=== PATIENT | male | born 1985 | race Asian ===

== ENCOUNTER 2020-10-31 10:25 | Inpatient (IN) | payer BC ==
[~2020-10-31] VITALS: Ht 177.8 cm; Wt 117.6 kg
--- NOTE | 2020-10-31 11:01 | NUR ---
PT BIB SELF VIA POV. PER PT HE HASN'T CHECKED HIS TEMPERATURE BUT FEELS LIKE HE HAS HAD FEVER SINCE LAST NIGHT. PT ALSO STATES HE HAS HAD A [place] AND COUGH X1DAY. PT STATES HE IS VACCINATED FOR COVID19. PT RESTING IN [place] AT THIS TIME, TM.
[2020-10-31] MEDS ORDERED: KETOROLAC 30 MG/1 ML ONE (11:26)
[2020-10-31] MEDS ORDERED: KETOROLAC 30 MG/1 ML IVPush ONE (12:00)
[2020-10-31] MEDS ORDERED: SODIUM CHLORIDE 0.9% 1,000ML IVBOLUS ONE (12:00)
[2020-10-31 12:08] LABS: BASOPHILS % (AUTO) 1 % (0-1); EOSINOPHILS % (AUTO) 4 % (1-7); LYMPHOCYTES % (AUTO) 12 % (22-44); MEAN CORPUSCULAR HEMOGLOBIN 30.4 pg (27.5-34.5); MEAN CORPUSCULAR HGB CONC 34.8 g/dL (33.2-36.2); MEAN PLATELET VOLUME 7.3 fL (7.4-10.4); MONOCYTES % (AUTO) 10 % (2-9); NEUTROPHILS % (AUTO) 74 % (42-75); PLATELET COUNT 223 x10^3/uL (130-400); RED BLOOD COUNT 4.24 x10^6/uL (4.38-5.82); RED CELL DISTRIBUTION WIDTH 14.3 % (9.4-14.8)
[2020-10-31 12:19] LABS: ALANINE AMINOTRANSFERASE 22 U/L (12-78); ALBUMIN 3.5 g/dL (3.4-5.0); ANION GAP 12 mmol/L (5-15); CALCIUM 8.5 mg/dL (8.5-10.1); CHLORIDE 105 mmol/L (98-107); CREATININE 7.47 mg/dL (0.7-1.3)
[2020-10-31 12:22] LABS: ALKALINE PHOSPHATASE 75 U/L (45-117); BILIRUBIN,TOTAL 1.4 mg/dL (0.2-1.0); TOTAL PROTEIN 8.9 g/dL (6.4-8.2)
[2020-10-31] MEDS ORDERED: SODIUM CHLORIDE FLUSH 10ML SYR IVF ONE (12:30)
--- NOTE | 2020-10-31 13:26 | NUR ---
Denise schaefer in [facility] - 10/31/20 at 1326 by DARRIUS REPORT FROM JAYESH CHUNG
--- NOTE | 2020-10-31 13:27 | NUR ---
REPORT FROM JAYESH ELLIOTT.
--- NOTE | 2020-10-31 13:35 | NUR ---
UNHOOKED TO GO TO BATHROOM GIVEN UA CUP COVID SWAB TO LAB.
--- NOTE | 2020-10-31 14:03 | NUR ---
MO DODGE AT BEDSIDE.
[2020-10-31 14:23] LABS: MICROSCOPIC AUTO
--- NOTE | 2020-10-31 14:25 | NUR ---
SPOKE Jeffery HASSAN RE: HIGH BP. STS DOES NOT WANT TO LOWER PTS BP TOO QUICKLY AND WILL AWAIT HOSPITALIST EVAL OF PT. PT DENIES PAIN, STS HE FEELS FINE, CALL KEARNEY IN REACH.
[2020-10-31] MEDS ORDERED: ONDANSETRON 2MG/ML, 2ML IVPush PRN (14:30)
[2020-10-31] MEDS ORDERED: hydrALAzine 20 MG/ML, 1ML IVPush PRN (14:30)
[2020-10-31] MEDS ORDERED: BISACODYL 10 MG SUPP PR PRN (14:30)
[2020-10-31] MEDS ORDERED: TRAZODONE 50MG TABLET PO PRN (14:30)
[2020-10-31] MEDS ORDERED: MELATONIN 5 MG TABLET PO PRN (14:30)
[2020-10-31] MEDS ORDERED: HEPARIN 5,000 UNITS/ML, 1ML ONE (14:31)
[2020-10-31] MEDS: HEPARIN 5,000 UNITS/ML, 1ML SQ SCH ×2 (14:36→21:27)
[2020-10-31] MEDS: LABETALOL 5MG/ML, 20ML IVPush PRN ×2 (14:37→21:45)
[2020-10-31] MEDS ORDERED: OLMESARTAN PO (14:41)
[2020-10-31] MEDS ORDERED: SPIR25TA5 PO (14:41)
--- NOTE | 2020-10-31 14:43 | NUR ---
GAVE 10 MG IV LABETALOL W [place]NA [place], ORDERED DIET TRAY, MED REQ COMPLETE, NAD. CALL KEARNEY.
[2020-10-31 14:53] LABS: ABSOLUTE RETICS # 0.113 x10^6/uL (0.5-1.5); HCT (SEDRATE) 35.5 % (39.2-51.8); RED BLOOD COUNT 4.06 x10^6/uL (4.38-5.82); RETICULOCYTE COUNT % 2.79 % (0.5-1.5)
[2020-10-31 14:55] LABS: CHLORIDE,URINE RANDOM 77 mmol/L; POTASSIUM,URINE RANDOM 13 mmol/L; SODIUM,URINE RANDOM 82 mmol/L
--- NOTE | 2020-10-31 14:57 | NUR ---
REPORT TO JAYESH ELLIOTT.
[2020-10-31 14:58] LABS: CREATININE,URINE RANDOM 67.6 mg/dL
[2020-10-31 15:13] LABS: C-REACTIVE PROTEIN, QUANT 2.6 mg/dL (0.02-0.49)
--- NOTE | 2020-10-31 15:35 | NUR ---
PAIN IS 6/10 AT THIS TIME
--- NOTE | 2020-10-31 17:16 | NUR ---
PT EATING, VERBALIZED NO NEEDS AT THIS TIME
--- NOTE | 2020-10-31 17:58 | NUR ---
PT TO FLOOR VIA [facility] WITH BELONGINGS
[2020-10-31 18:01] VITALS: BP 149/97
[2020-10-31 19:00] VITALS: BP 149/97
[2020-10-31] MEDS: INSULIN LISPRO 100 UNITS/ML, PEN SQ-INSULIN SCH (21:00)
[2020-10-31] MEDS: ALBUTEROL HFA 90 MCG/SPRAY INH SCH (21:00)
[2020-10-31] MEDS: CEFTRIAXONE 2 GM in DEXTROSE 5% 50 ML IVPB SCH (21:25)
[2020-10-31] MEDS: GUAIFENESIN ER 600 MG TABLET PO SCH (21:26)
[2020-10-31] MEDS: DOXYCYCLINE 100MG TABLET PO SCH (21:26)
[2020-10-31 21:40] VITALS: BP 165/114
[2020-10-31 22:09] VITALS: BP 136/90
[2020-11-01 04:44] VITALS: BP_SYST 144; BP_SYST 147; BP_DIAS 107; BP_DIAS 109
[2020-11-01] MEDS: HEPARIN 5,000 UNITS/ML, 1ML SQ SCH ×3 (04:49→20:58)
[2020-11-01] MEDS: ALBUTEROL HFA 90 MCG/SPRAY INH SCH ×2 (06:00→11:00)
[2020-11-01 06:06] LABS: BASOPHILS % (AUTO) 0 % (0-1); EOSINOPHILS % (AUTO) 2 % (1-7); LYMPHOCYTES % (AUTO) 13 % (22-44); MEAN CORPUSCULAR HEMOGLOBIN 30.3 pg (27.5-34.5); MEAN CORPUSCULAR HGB CONC 34.5 g/dL (33.2-36.2); MEAN PLATELET VOLUME 7.1 fL (7.4-10.4); MONOCYTES % (AUTO) 6 % (2-9); NEUTROPHILS % (AUTO) 79 % (42-75); PLATELET COUNT 204 x10^3/uL (130-400); RED BLOOD COUNT 4.01 x10^6/uL (4.38-5.82); RED CELL DISTRIBUTION WIDTH 14.4 % (9.4-14.8)
[2020-11-01 06:21] LABS: ALBUMIN 2.9 g/dL (3.4-5.0); ANION GAP 9 mmol/L (5-15); CALCIUM 8.1 mg/dL (8.5-10.1); CHLORIDE 105 mmol/L (98-107)
[2020-11-01 06:24] LABS: ALANINE AMINOTRANSFERASE 25 U/L (12-78); ALKALINE PHOSPHATASE 65 U/L (45-117); BILIRUBIN,TOTAL 0.8 mg/dL (0.2-1.0); TOTAL PROTEIN 8.1 g/dL (6.4-8.2)
[2020-11-01] MEDS: INSULIN LISPRO 100 UNITS/ML, PEN SQ-INSULIN SCH ×4 (07:00→20:51)
[2020-11-01] MEDS: AMLODIPINE 10 MG TAB PO SCH (08:39)
[2020-11-01] MEDS: GUAIFENESIN ER 600 MG TABLET PO SCH ×2 (08:39→20:51)
[2020-11-01] MEDS: DOXYCYCLINE 100MG TABLET PO SCH ×2 (08:39→20:51)
[2020-11-01] MEDS: ALLOPURINOL 300 MG TABLET PO SCH (08:40)
[2020-11-01] MEDS: SENNA/DOCUSATE TABLET PO SCH (08:40)
[2020-11-01 09:58] VITALS: BP 130/86
[2020-11-01 12:15] VITALS: BP 148/105
[2020-11-01] MEDS ORDERED: ALBUTEROL HFA 90 MCG/SPRAY INH PRN (15:30)
[2020-11-01 16:08] VITALS: BP 131/88
[2020-11-01 20:39] VITALS: BP 145/99
[2020-11-01] MEDS: CEFTRIAXONE 2 GM in DEXTROSE 5% 50 ML IVPB SCH (20:51)
[2020-11-01] MEDS: BUDESONIDE 0.5 MG/2 ML INHA INH SCH (21:00)
[2020-11-02 02:01] VITALS: BP 133/93
[2020-11-02] MEDS: HEPARIN 5,000 UNITS/ML, 1ML SQ SCH ×4 (04:34→21:39)
[2020-11-02 06:06] LABS: BASOPHILS % (AUTO) 0 % (0-1); EOSINOPHILS % (AUTO) 1 % (1-7); LYMPHOCYTES % (AUTO) 18 % (22-44); MEAN CORPUSCULAR HEMOGLOBIN 30.3 pg (27.5-34.5); MEAN CORPUSCULAR HGB CONC 34.8 g/dL (33.2-36.2); MEAN PLATELET VOLUME 7.2 fL (7.4-10.4); MONOCYTES % (AUTO) 6 % (2-9); NEUTROPHILS % (AUTO) 75 % (42-75); PLATELET COUNT 227 x10^3/uL (130-400); RED BLOOD COUNT 4.11 x10^6/uL (4.38-5.82); RED CELL DISTRIBUTION WIDTH 14.5 % (9.4-14.8)
[2020-11-02 06:19] LABS: CHLORIDE 104 mmol/L (98-107)
[2020-11-02 06:23] LABS: ANION GAP 10 mmol/L (5-15); CALCIUM 8.1 mg/dL (8.5-10.1); CREATININE 7.68 mg/dL (0.7-1.3)
[2020-11-02] MEDS ORDERED: ALBUTEROL SULFATE 2.5 MG/3 ML NPPB PRN (06:30)
[2020-11-02] MEDS: INSULIN LISPRO 100 UNITS/ML, PEN SQ-INSULIN SCH ×4 (07:00→21:00)
[2020-11-02 07:13] VITALS: BP 153/95
[2020-11-02] MEDS: GUAIFENESIN ER 600 MG TABLET PO SCH ×2 (07:58→21:38)
[2020-11-02] MEDS: DOXYCYCLINE 100MG TABLET PO SCH ×2 (07:58→21:38)
[2020-11-02] MEDS: ALLOPURINOL 300 MG TABLET PO SCH (07:58)
[2020-11-02] MEDS: AMLODIPINE 10 MG TAB PO SCH (07:58)
[2020-11-02] MEDS: SENNA/DOCUSATE TABLET PO SCH (07:58)
[2020-11-02] MEDS: BUDESONIDE 0.5 MG/2 ML INHA INH SCH ×2 (08:27→21:00)
[2020-11-02] MEDS: ALBUTEROL SULFATE 2.5 MG/3 ML NPPB SCH ×2 (08:27→21:00)
[2020-11-02 09:25] VITALS: BP 137/92
[2020-11-02 09:45] LABS: INTERNATIONAL NORMALIZED RATIO 1.06 (0.93-1.1); PROTHROMBIN TIME 11.3 Seconds (9.6-11.5)
[2020-11-02] MEDS ORDERED: LIDOCAINE 1%, 10ML ONE ×2 (12:44→13:38)
[2020-11-02] MEDS ORDERED: NALOXONE 1 MG/ML, 2ML ONE (12:51)
[2020-11-02] MEDS ORDERED: FENTANYL PF 100 MCG/2ML ONE (12:51)
[2020-11-02] MEDS ORDERED: FLUMAZENIL 0.1 MG/1 ML, 5ML ONE (12:51)
[2020-11-02] MEDS ORDERED: MIDAZOLAM 1 MG/ML, 5ML ONE (12:52)
[2020-11-02] MEDS ORDERED: LIDOCAINE 1%, 20ML ONE (13:36)
[2020-11-02 14:59] VITALS: BP 151/110
[2020-11-02] MEDS: CALCIUM ACETATE 667 MG CAPSULE PO SCH ×2 (16:40→21:38)
[2020-11-02 20:41] VITALS: BP 142/103
[2020-11-02] MEDS: CEFTRIAXONE 2 GM in DEXTROSE 5% 50 ML IVPB SCH (21:38)
[2020-11-03 00:28] VITALS: BP 140/96
[2020-11-03] MEDS: HEPARIN 5,000 UNITS/ML, 1ML SQ SCH ×3 (05:54→20:33)
[2020-11-03] MEDS: INSULIN LISPRO 100 UNITS/ML, PEN SQ-INSULIN SCH ×4 (07:00→20:25)
[2020-11-03 08:21] VITALS: BP 130/93
[2020-11-03 08:28] LABS: BASOPHILS % (AUTO) 1 % (0-1); EOSINOPHILS % (AUTO) 3 % (1-7); LYMPHOCYTES % (AUTO) 20 % (22-44); MEAN CORPUSCULAR HGB CONC 34.4 g/dL (33.2-36.2); MEAN PLATELET VOLUME 7.2 fL (7.4-10.4); MONOCYTES % (AUTO) 7 % (2-9); NEUTROPHILS % (AUTO) 70 % (42-75); PLATELET COUNT 268 x10^3/uL (130-400); RED CELL DISTRIBUTION WIDTH 14.3 % (9.4-14.8)
[2020-11-03] MEDS: CALCIUM ACETATE 667 MG CAPSULE PO SCH ×3 (08:29→17:00)
[2020-11-03] MEDS: GUAIFENESIN ER 600 MG TABLET PO SCH ×2 (08:29→20:25)
[2020-11-03] MEDS: DOXYCYCLINE 100MG TABLET PO SCH ×2 (08:29→20:27)
[2020-11-03] MEDS: SENNA/DOCUSATE TABLET PO SCH (08:30)
[2020-11-03 08:34] LABS: CHLORIDE 99 mmol/L (98-107)
[2020-11-03 08:36] LABS: ALANINE AMINOTRANSFERASE 22 U/L (12-78); ALBUMIN 3.4 g/dL (3.4-5.0); ANION GAP 14 mmol/L (5-15); CALCIUM 9.2 mg/dL (8.5-10.1); CHLORIDE 98 mmol/L (98-107)
[2020-11-03 08:39] LABS: ALKALINE PHOSPHATASE 71 U/L (45-117); BILIRUBIN,TOTAL 0.6 mg/dL (0.2-1.0); CREATININE 6.68 mg/dL (0.7-1.3)
[2020-11-03 08:54] LABS: ALBUMIN 3.4 g/dL (3.4-5.0); ANION GAP 13 mmol/L (5-15); CALCIUM 8.9 mg/dL (8.5-10.1); CREATININE 6.71 mg/dL (0.7-1.3); FREE T4 (FREE THYROXINE) 1.32 ng/dL (0.76-1.46)
[2020-11-03] MEDS: SPIRONOLACTONE 25 MG TABLET PO SCH (09:00)
[2020-11-03] MEDS: AMLODIPINE 10 MG TAB PO SCH (09:00)
[2020-11-03] MEDS: LOSARTAN 100 MG TAB PO SCH (09:00)
[2020-11-03] MEDS: ALBUTEROL SULFATE 2.5 MG/3 ML NPPB SCH (10:00)
[2020-11-03] MEDS: BUDESONIDE 0.5 MG/2 ML INHA INH SCH (10:00)
[2020-11-03] MEDS ORDERED: ALBUTEROL SULFATE 2.5 MG/3 ML NPPB PRN (10:30)
[2020-11-03] MEDS: CALCITRIOL 0.25 MCG CAPSULE PO SCH (13:31)
[2020-11-03 13:39] VITALS: BP 130/88
[2020-11-03 20:37] VITALS: BP 122/89
[2020-11-04 01:58] VITALS: BP 131/95
[2020-11-04 04:04] LABS: BASOPHILS % (AUTO) 1 % (0-1); EOSINOPHILS % (AUTO) 2 % (1-7); LYMPHOCYTES % (AUTO) 19 % (22-44); MEAN CORPUSCULAR HEMOGLOBIN 29.6 pg (27.5-34.5); MEAN CORPUSCULAR HGB CONC 33.7 g/dL (33.2-36.2); MEAN PLATELET VOLUME 7.2 fL (7.4-10.4); MONOCYTES % (AUTO) 10 % (2-9); NEUTROPHILS % (AUTO) 68 % (42-75); PLATELET COUNT 255 x10^3/uL (130-400); RED BLOOD COUNT 4.65 x10^6/uL (4.38-5.82); RED CELL DISTRIBUTION WIDTH 14.3 % (9.4-14.8)
[2020-11-04 04:16] LABS: CHLORIDE 98 mmol/L (98-107)
[2020-11-04 04:25] LABS: ALBUMIN 3.2 g/dL (3.4-5.0); ANION GAP 11 mmol/L (5-15); CALCIUM 9.2 mg/dL (8.5-10.1); CREATININE 5.38 mg/dL (0.7-1.3)
[2020-11-04 05:14] LABS: ANION GAP 14 mmol/L (5-15); CALCIUM 9.3 mg/dL (8.5-10.1); CHLORIDE 99 mmol/L (98-107); CREATININE 5.53 mg/dL (0.7-1.3)
[2020-11-04] MEDS: HEPARIN 5,000 UNITS/ML, 1ML SQ SCH ×3 (05:32→22:00)
[2020-11-04] MEDS: INSULIN LISPRO 100 UNITS/ML, PEN SQ-INSULIN SCH ×4 (07:00→20:05)
[2020-11-04] MEDS ORDERED: CEFDINIR 300 MG CAPSULE PO SCH (07:00)
[2020-11-04] MEDS: ALLOPURINOL 100 MG TABLET PO SCH (08:09)
[2020-11-04] MEDS: AMLODIPINE 10 MG TAB PO SCH (08:09)
[2020-11-04] MEDS: DOXYCYCLINE 100MG TABLET PO SCH ×2 (08:09→20:05)
[2020-11-04] MEDS: LOSARTAN 100 MG TAB PO SCH (08:09)
[2020-11-04] MEDS: CALCITRIOL 0.25 MCG CAPSULE PO SCH (08:09)
[2020-11-04] MEDS: SPIRONOLACTONE 25 MG TABLET PO SCH (08:10)
[2020-11-04] MEDS: CALCIUM ACETATE 667 MG CAPSULE PO SCH ×3 (08:10→18:30)
[2020-11-04] MEDS: CEFDINIR 300 MG CAPSULE PO SCH (08:10)
[2020-11-04] MEDS: GUAIFENESIN ER 600 MG TABLET PO SCH ×2 (08:10→20:05)
[2020-11-04 08:11] VITALS: BP 140/102
[2020-11-04] MEDS: SENNA/DOCUSATE TABLET PO SCH (08:11)
[2020-11-04 13:32] VITALS: BP 115/82
[2020-11-04] MEDS: ACETAMINOPHEN 325 MG TABLET PO PRN (17:19)
[2020-11-04 19:54] VITALS: BP 113/80
[2020-11-05 00:33] VITALS: BP 135/84
[2020-11-05] MEDS: HEPARIN 5,000 UNITS/ML, 1ML SQ SCH ×2 (05:16→16:40)
[2020-11-05] MEDS: INSULIN LISPRO 100 UNITS/ML, PEN SQ-INSULIN SCH ×4 (07:00→20:37)
[2020-11-05 07:12] VITALS: BP 122/65
[2020-11-05 07:29] LABS: BASOPHILS % (AUTO) 1 % (0-1); EOSINOPHILS % (AUTO) 2 % (1-7); LYMPHOCYTES % (AUTO) 16 % (22-44); MEAN CORPUSCULAR HEMOGLOBIN 29.7 pg (27.5-34.5); MEAN CORPUSCULAR HGB CONC 33.9 g/dL (33.2-36.2); MEAN PLATELET VOLUME 7.5 fL (7.4-10.4); MONOCYTES % (AUTO) 10 % (2-9); NEUTROPHILS % (AUTO) 72 % (42-75); PLATELET COUNT 218 x10^3/uL (130-400); RED BLOOD COUNT 4.44 x10^6/uL (4.38-5.82); RED CELL DISTRIBUTION WIDTH 13.8 % (9.4-14.8)
[2020-11-05] MEDS: CALCIUM ACETATE 667 MG CAPSULE PO SCH ×3 (07:43→16:39)
[2020-11-05] MEDS: ACETAMINOPHEN 325 MG TABLET PO PRN ×2 (07:58→20:48)
[2020-11-05] MEDS: SPIRONOLACTONE 25 MG TABLET PO SCH (07:58)
[2020-11-05] MEDS: AMLODIPINE 10 MG TAB PO SCH (07:58)
[2020-11-05] MEDS: LOSARTAN 100 MG TAB PO SCH (07:58)
[2020-11-05 08:21] LABS: ALBUMIN 3.2 g/dL (3.4-5.0); ANION GAP 7 mmol/L (5-15); CALCIUM 9.2 mg/dL (8.5-10.1); CHLORIDE 96 mmol/L (98-107); CREATININE 5.86 mg/dL (0.7-1.3)
[2020-11-05] MEDS: GUAIFENESIN ER 600 MG TABLET PO SCH ×2 (09:00→20:48)
[2020-11-05] MEDS: ALLOPURINOL 100 MG TABLET PO SCH (09:00)
[2020-11-05] MEDS: SENNA/DOCUSATE TABLET PO SCH (09:00)
[2020-11-05] MEDS: CALCITRIOL 0.25 MCG CAPSULE PO SCH (09:00)
[2020-11-05 09:21] LABS: ANION GAP 9 mmol/L (5-15); CALCIUM 9.1 mg/dL (8.5-10.1); CHLORIDE 96 mmol/L (98-107); CREATININE 5.99 mg/dL (0.7-1.3)
[2020-11-05] MEDS ORDERED: FENTANYL PF 100 MCG/2ML ONE (10:20)
[2020-11-05] MEDS ORDERED: NALOXONE 1 MG/ML, 2ML ONE (10:20)
[2020-11-05] MEDS ORDERED: MIDAZOLAM 1 MG/ML, 5ML ONE (10:20)
[2020-11-05] MEDS ORDERED: FLUMAZENIL 0.1 MG/1 ML, 5ML ONE (10:20)
[2020-11-05] MEDS ORDERED: LIDOCAINE 1%, 10ML ONE (10:37)
[2020-11-05] MEDS: DOXYCYCLINE 100MG TABLET PO SCH ×2 (12:19→20:48)
[2020-11-05] MEDS: CEFDINIR 300 MG CAPSULE PO SCH (12:20)
[2020-11-05 15:10] VITALS: BP 112/80
[2020-11-05 19:54] VITALS: BP 131/95
[2020-11-06] MEDS: HEPARIN 5,000 UNITS/ML, 1ML SQ SCH ×3 (00:30→16:30)
[2020-11-06 00:31] VITALS: BP 126/84
[2020-11-06] MEDS: INSULIN LISPRO 100 UNITS/ML, PEN SQ-INSULIN SCH ×3 (07:00→16:00)
[2020-11-06 08:01] VITALS: BP 115/83
[2020-11-06] MEDS: LOSARTAN 100 MG TAB PO SCH (09:00)
[2020-11-06] MEDS: SENNA/DOCUSATE TABLET PO SCH (09:00)
[2020-11-06] MEDS: CALCIUM ACETATE 667 MG CAPSULE PO SCH ×3 (12:00→17:00)
[2020-11-06 13:27] LABS: ANION GAP 8 mmol/L (5-15); CALCIUM 9.7 mg/dL (8.5-10.1); CHLORIDE 95 mmol/L (98-107); CREATININE 4.95 mg/dL (0.7-1.3)
[2020-11-06] MEDS: DOXYCYCLINE 100MG TABLET PO SCH (13:51)
[2020-11-06] MEDS: CALCITRIOL 0.25 MCG CAPSULE PO SCH (13:51)
[2020-11-06] MEDS: GUAIFENESIN ER 600 MG TABLET PO SCH (13:51)
[2020-11-06] MEDS: CEFDINIR 300 MG CAPSULE PO SCH (13:51)
[2020-11-06] MEDS: AMLODIPINE 10 MG TAB PO SCH (13:52)
[2020-11-06] MEDS: SPIRONOLACTONE 25 MG TABLET PO SCH (13:52)
[2020-11-06] MEDS: ALLOPURINOL 100 MG TABLET PO SCH (13:52)
[2020-11-06] MEDS: ACETAMINOPHEN 325 MG TABLET PO PRN ×2 (13:53→17:37)
[2020-11-06 14:27] VITALS: BP 114/79
[2020-11-06 14:37] VITALS: BP 89/64
[2020-11-06] MEDS ORDERED: CALC0.25 PO (14:56)
[2020-11-06] MEDS ORDERED: ALLO100T30 PO (14:56)
[2020-11-06] MEDS ORDERED: AMLO-211 PO (14:56)
[2020-11-06] MEDS ORDERED: LOSA100T2 PO (14:56)
[2020-11-06] MEDS ORDERED: SPIR25TA PO (14:56)
[2020-11-06] MEDS ORDERED: CALC667C PO (14:56)
== END 2020-11-06 18:18 | disposition home or self-care (01) | DRG 673 ==
LOC: ED 13:52 → EDIP 13:53 → ED 14:13 → SUATTDRO 14:17 → 4EST 17:53
PROVIDERS: ADMIT Hospitalist; ATTEND Family Medicine
PROC: 0JH63XZ Insertion of Tunneled Vascular Access Device into Chest Subcutaneous Tissue and Fascia, Percutaneous Approach (ICD-10-PCS; principal; 2020-11-02)
PROC: 02H633Z Insertion of Infusion Device into Right Atrium, Percutaneous Approach (ICD-10-PCS; 2020-11-02)
PROC: B5181ZA Fluoroscopy of Superior Vena Cava using Low Osmolar Contrast, Guidance (ICD-10-PCS; 2020-11-02)
PROC: B548ZZA Ultrasonography of Superior Vena Cava, Guidance (ICD-10-PCS; 2020-11-02)
PROC: 5A1D70Z Performance of Urinary Filtration, Intermittent, Less than 6 Hours Per Day (ICD-10-PCS; 2020-11-02)
PROC: 5A1D70Z Performance of Urinary Filtration, Intermittent, Less than 6 Hours Per Day (ICD-10-PCS; 2020-11-03)
PROC: 0TB13ZX Excision of Left Kidney, Percutaneous Approach, Diagnostic (ICD-10-PCS; 2020-11-05)
DX: I12.0 Hypertensive chronic kidney disease with stage 5 chronic kidney disease or end stage renal disease (principal); N18.6 End stage renal disease; N17.9 Acute kidney failure, unspecified; J20.9 Acute bronchitis, unspecified; E11.22 Type 2 diabetes mellitus with diabetic chronic kidney disease; B34.9 Viral infection, unspecified; D64.9 Anemia, unspecified; J45.909 Unspecified asthma, uncomplicated; M10.9 Gout, unspecified; M89.8X9 Other specified disorders of bone, unspecified site; Z20.822 Contact with and (suspected) exposure to COVID-19; E11.65 Type 2 diabetes mellitus with hyperglycemia; E66.9 Obesity, unspecified; Z99.2 Dependence on renal dialysis; Z68.37 Body mass index [BMI] 37.0-37.9, adult; Z79.899 Other long term (current) drug therapy; Z91.19 Patient's noncompliance with other medical treatment and regimen; Z83.3 Family history of diabetes mellitus; Z82.49 Family history of ischemic heart disease and other diseases of the circulatory system
CPT/HCPCS: 36415; 84145; 96361; 96374; 96375; 99285; J3490; J7613; J7626; 36558; 50200; 71045; 76770; 76937; 77012; 80048; 80053; 80069; 81001; 82088; 82306; 82436; 82533; 82570; 82728; 82962; 83036; 83540; 83550; 83605; 83615; 83735; 83835; 83970; 84100; 84133; 84156; 84244; 84300; 84439; 84443; 84550; 85025; 85045; 85379; 85610; 85651; 86140; 86480; 86704; 86706; 86803; 87040; 87070; 87205; 87340; 88300; 90935; 93005; 94640; 99156; 99157; G0378; J0696; J1644; J1885; J2250; J3010; J7509; U0005; C1750; J1642; J1815; J2310; J7030; U0003